=== PATIENT | male | born 1980 | race African-American/Black ===

== ENCOUNTER 2020-10-17 16:39 | Inpatient (IN) ==
--- NOTE | 2020-10-17 16:56 | Emergency Department Note ---
History of Present Illness General Chief complaint: Mental Health Evaluation Stated complaint: MHID Time Seen by Provider: 10/17/20 16:41 Source: patient and EMS Mode of arrival: EMS Limitations: patient cooperation History of Present Illness Provider complaint: Suicidal and homicidal Onset (ago): year(s) Location: head Pain Consistency: + intermittent Quality: + other (Wants to get a gun and shoot people he does not like) Exacerbated By: + other (Stress) Associated symptoms: no chest pain, no cough, no fever/chills, no headaches, no malaise, no nausea/vomiting and no shortness of breath This is a 40-year-old male with a history of bipolar disorder presenting for mental health evaluation. The patient is currently homeless and was living in a longterm. He was referred to crisis from the longterm due to homicidal and suicid al ideation. Crisis then sent him here for further evaluation. Patient admits to homicidal and suicidal ideation. He states that it has been going on most of his life. He has not been taking his bipolar medications. He states that yesterday he overdosed on his trazodone and took 4 pills with alcohol instead of 2. He also feels like getting a gun and shooting people he does not like. He denies any physical complaints. He states he has had no fever, cough or cold symptoms, chest pain, shortness of breath, abdominal pain, vomiting, diarrhea or urinary symptoms. He does request to be tested for STDs because he states he does not trust his . He denies any symptoms or urethral discharge. Past Med/Surg History Medical History (Updated 10/17/20 @ 22:42 by Kevan Romero MD) Bipolar disorder Social History (Updated 10/17/20 @ 16:54 by Kevan Romero MD) Smoking Status: Current every day smoker marital status: Current Living Situation: Homeless Feels Safe at Home: Yes Review of Systems See HPI for pertinent positives & negatives. and A total of 10 systems reviewed and were otherwise negative Physical Exam Vital Signs Vital Signs - 24 hr 10/17/20 16:57 10/17/20 19:41 10/17/20 21:00 Temperature 36.7 C Temperature Source Oral Pulse Rate 100 H Pulse Rate [Right Finger] 89 89 Pulse Rhythm [Right Finger] Regular Regular Pulse Strength [Right Finger] Normal Normal Respiratory Rate 17 16 20 Respiratory Effort / Characteristics Non-Labored Non-Labored Spontaneous Respiratory Depth Normal Normal Blood Pressure 137/83 Blood Pressure [Right Arm] 115/71 120/79 Blood Pressure Mean 101 Blood Pressure Mean [Right Arm] 85 92 Blood Pressure Position [Right Arm] Lying Lying Pulse Oximetry 99 95 95 Oxygen Delivery Method Room Air Room Air Room Air Sepsis Recent Fever Within 48 Hours No Sepsis New/Unexplained Change in Mental Status N/A Sepsis Action Taken by Nursing No Action Required Constitutional: Vital signs reviewed. Eyes: Pupils are equal round reactive to light. Conjunctiva are noninjected. ENT: Pharynx is clear without erythema or exudate. Mucous membranes are moist. Neck supple without meningeal signs. Respiratory: Clear to auscultation bilaterally. Breath sounds are equal bilaterally. Cardiovascular: Regular rate and rhythm. No rubs or gallops. GI: Soft, nondistended and nontender. Bowel sounds are present. : Normal external genitalia. No urethral discharge. Musculoskeletal: No peripheral edema. No lower extremity tenderness. Integumentary: No cyanosis. or jaundice. Neurological: The patient is awake and alert. No focal deficits. Psychiatric: Flat affect. Medical Decision Making Differential Diagnosis Bipolar disorder, homicidal ideation, suicidal ideation, and mood disorder, STI, alcohol abuse Medical Records Attestation: I reviewed the patient's medical records. I did perform a limited focused review of portions of the patient's old chart on the electronic medical record. The patient has had no recent pertinent visits to this hospital. Home Medications Current Medication List: was personally reviewed by me Laboratory Data Attestation: I reviewed the patient's lab results. Result diagrams: 10/17/20 17:09 10/17/20 17:09 Lab Results 10/17/20 10/17/20 10/17/20 Range/Units 16:48 16:48 17:00 WBC (4.8-10.8) K/uL RBC (4.7-6.1) M/uL Hgb (14.0-18.0) g/dL Hct (42-52) % MCV (80-100) fL MCH (25-34) pg MCHC (32-36) g/dL RDW Std Deviation (36.4-46.3) fL RDW Coeff of Sera (11.5-14.5) % Plt Count (130-400) K/uL MPV (7.4-10.4) fL Immature Gran % (Auto) % Neut % (Auto) % Lymph % (Auto) % [place] % (Auto) % Eos % (Auto) % Baso % (Auto) % Neut # (Auto) (1.4-6.5) K/uL Lymph # (Auto) (1.2-3.4) K/uL [place] # (Auto) (0.11-0.59) K/uL Eos # (Auto) (0-0.5) K/uL Baso # (Auto) (0-0.2) K/uL Immature Gran # (Auto) (0.00-0.02) K/uL Sodium (136-145) mmol/L Potassium (3.5-5.1) mmol/L Chloride (98-107) mmol/L Carbon Dioxide (21-32) mmol/L Anion Gap (3-11) BUN (7-18) mg/dl Creatinine (0.6-1.4) mg/dl Est Cr Clr Drug Dosing ml/min Est GFR ( Amer) Est GFR (Non-Af Amer) BUN/Creatinine Ratio (10-20) Glucose (70-99) mg/dl Calcium (8.5-10.1) mg/dl Total Bilirubin (0.2-1) mg/dl AST (15-37) U/L ALT (12-78) U/L Alkaline Phosphatase (45-117) U/L Total Protein (6.4-8.2) gm/dl Albumin (3.4-5.0) gm/dl Globulin (2.5-4.0) gm/dl Albumin/Globulin Ratio (0.9-2) TSH (0.300-4.500) uIu/ml Free T4 (0.8-1.6) ng/dl Urine Color Yellow Urine Appearance Clear (Clear) Urine pH 5.5 (4.5-7.5) Ur Specific [place] 1.012 (1.000-1.030) Urine Protein Negative (Negative) Urine Glucose (UA) Negative (Negative) Urine Ketones Trace H (Negative) Urine Blood Negative (Negative) Urine Nitrite Negative (Negative) Urine Bilirubin Negative (Negative) Urine Urobilinogen Negative (Negative) Ur Leukocyte Esterase Trace H (Negative) Urine WBC (Auto) 1-5 (0-5) /hpf Urine RBC (Auto) 0-4 (0-4) /hpf U Hyaline Cast (Auto) 1-5 (0-5) /lpf U Epithel Cells (Auto) 5-10 H (0-5) /lpf Urine Bacteria (Auto) Negative (Negative) Salicylates (2.8-20) mg/dl Urine Opiates Screen Neg (Neg) Ur Methadone, Qual Neg (Neg) Acetaminophen (10-30) ug/ml Urine Barbiturates Neg (Neg) Ur Phencyclidine (PCP) Neg (Neg) U Amphetamin/Meth Scrn Neg (Neg) MDMA (Ecstasy) Screen Neg (Neg) U Benzodiazepines Scrn Neg (Neg) Ur Cocaine Metabolite Neg (Neg) U Marijuana (THC) Screen Neg (Neg) Ethyl Alcohol mg/dL (0-3) mg/dl COVID-19 Eval Order [facility]Rsv at [facility] SARS-CoV-2 (PCR) (Negative) Influenza Type A (PCR) (Neg) Influenza Type B (PCR) (Neg) RSV (RT-PCR) (Neg) 10/17/20 10/17/20 10/17/20 Range/Units 17:00 17:09 17:09 WBC 9.63 (4.8-10.8) K/uL RBC 5.47 (4.7-6.1) M/uL Hgb 15.7 (14.0-18.0) g/dL Hct 45.3 (42-52) % MCV 82.8 (80-100) fL MCH 28.7 (25-34) pg MCHC 34.7 (32-36) g/dL RDW Std Deviation 43.4 (36.4-46.3) fL RDW Coeff of Sera 14.3 (11.5-14.5) % Plt Count 299 (130-400) K/uL MPV 9.3 (7.4-10.4) fL Immature Gran % (Auto) 0.3 % Neut % (Auto) 49.4 % Lymph % (Auto) 43.4 % [place] % (Auto) 3.9 % Eos % (Auto) 2.8 % Baso % (Auto) 0.2 % Neut # (Auto) 4.75 (1.4-6.5) K/uL Lymph # (Auto) 4.18 H (1.2-3.4) K/uL [place] # (Auto) 0.38 (0.11-0.59) K/uL Eos # (Auto) 0.27 (0-0.5) K/uL Baso # (Auto) 0.02 (0-0.2) K/uL Immature Gran # (Auto) 0.03 H (0.00-0.02) K/uL Sodium 141 (136-145) mmol/L Potassium 3.5 (3.5-5.1) mmol/L Chloride 111 H (98-107) mmol/L Carbon Dioxide 24 (21-32) mmol/L Anion Gap 7.0 (3-11) BUN 8 (7-18) mg/dl Creatinine 1.22 (0.6-1.4) mg/dl Est Cr Clr Drug Dosing 97.2 ml/min Est GFR ( Amer) 86.0 Est GFR (Non-Af Amer) 74.2 BUN/Creatinine Ratio 6.5 L (10-20) Glucose 125 H (70-99) mg/dl Calcium 8.7 (8.5-10.1) mg/dl Total Bilirubin 0.3 (0.2-1) mg/dl AST 26 (15-37) U/L ALT 42 (12-78) U/L Alkaline Phosphatase 78 (45-117) U/L Total Protein 7.6 (6.4-8.2) gm/dl Albumin 3.8 (3.4-5.0) gm/dl Globulin 3.8 (2.5-4.0) gm/dl Albumin/Globulin Ratio 1.0 (0.9-2) TSH 0.238 L (0.300-4.500) uIu/ml Free T4 1.00 (0.8-1.6) ng/dl Urine Color Urine Appearance (Clear) Urine pH (4.5-7.5) Ur Specific [place] (1.000-1.030) Urine Protein (Negative) Urine Glucose (UA) (Negative) Urine Ketones (Negative) Urine Blood (Negative) Urine Nitrite (Negative) Urine Bilirubin (Negative) Urine Urobilinogen (Negative) Ur Leukocyte Esterase (Negative) Urine WBC (Auto) (0-5) /hpf Urine RBC (Auto) (0-4) /hpf U Hyaline Cast (Auto) (0-5) /lpf U Epithel Cells (Auto) (0-5) /lpf Urine Bacteria (Auto) (Negative) Salicylates (2.8-20) mg/dl Urine Opiates Screen (Neg) Ur Methadone, Qual (Neg) Acetaminophen (10-30) ug/ml Urine Barbiturates (Neg) Ur Phencyclidine (PCP) (Neg) U Amphetamin/Meth Scrn (Neg) MDMA (Ecstasy) Screen (Neg) U Benzodiazepines Scrn (Neg) Ur Cocaine Metabolite (Neg) U Marijuana (THC) Screen (Neg) Ethyl Alcohol mg/dL (0-3) mg/dl COVID-19 Eval Order SARS-CoV-2 (PCR) NEGATIVE (Negative) Influenza Type A (PCR) Negative (Neg) Influenza Type B (PCR) Negative (Neg) RSV (RT-PCR) Negative (Neg) 10/17/20 10/17/20 Range/Units 17:09 17:09 WBC (4.8-10.8) K/uL RBC (4.7-6.1) M/uL Hgb (14.0-18.0) g/dL Hct (42-52) % MCV (80-100) fL MCH (25-34) pg MCHC (32-36) g/dL RDW Std Deviation (36.4-46.3) fL RDW Coeff of Sera (11.5-14.5) % Plt Count (130-400) K/uL MPV (7.4-10.4) fL Immature Gran % (Auto) % Neut % (Auto) % Lymph % (Auto) % [place] % (Auto) % Eos % (Auto) % Baso % (Auto) % Neut # (Auto) (1.4-6.5) K/uL Lymph # (Auto) (1.2-3.4) K/uL [place] # (Auto) (0.11-0.59) K/uL Eos # (Auto) (0-0.5) K/uL Baso # (Auto) (0-0.2) K/uL Immature Gran # (Auto) (0.00-0.02) K/uL Sodium (136-145) mmol/L Potassium (3.5-5.1) mmol/L Chloride (98-107) mmol/L Carbon Dioxide (21-32) mmol/L Anion Gap (3-11) BUN (7-18) mg/dl Creatinine (0.6-1.4) mg/dl Est Cr Clr Drug Dosing ml/min Est GFR ( Amer) Est GFR (Non-Af Amer) BUN/Creatinine Ratio (10-20) Glucose (70-99) mg/dl Calcium (8.5-10.1) mg/dl Total Bilirubin (0.2-1) mg/dl AST (15-37) U/L ALT (12-78) U/L Alkaline Phosphatase (45-117) U/L Total Protein (6.4-8.2) gm/dl Albumin (3.4-5.0) gm/dl Globulin (2.5-4.0) gm/dl Albumin/Globulin Ratio (0.9-2) TSH (0.300-4.500) uIu/ml Free T4 (0.8-1.6) ng/dl Urine Color Urine Appearance (Clear) Urine pH (4.5-7.5) Ur Specific [place] (1.000-1.030) Urine Protein (Negative) Urine Glucose (UA) (Negative) Urine Ketones (Negative) Urine Blood (Negative) Urine Nitrite (Negative) Urine Bilirubin (Negative) Urine Urobilinogen (Negative) Ur Leukocyte Esterase (Negative) Urine WBC (Auto) (0-5) /hpf Urine RBC (Auto) (0-4) /hpf U Hyaline Cast (Auto) (0-5) /lpf U Epithel Cells (Auto) (0-5) /lpf Urine Bacteria (Auto) (Negative) Salicylates 3.1 (2.8-20) mg/dl Urine Opiates Screen (Neg) Ur Methadone, Qual (Neg) Acetaminophen < 2 L (10-30) ug/ml Urine Barbiturates (Neg) Ur Phencyclidine (PCP) (Neg) U Amphetamin/Meth Scrn (Neg) MDMA (Ecstasy) Screen (Neg) U Benzodiazepines Scrn (Neg) Ur Cocaine Metabolite (Neg) U Marijuana (THC) Screen (Neg) Ethyl Alcohol mg/dL 256.9 H (0-3) mg/dl COVID-19 Eval Order SARS-CoV-2 (PCR) (Negative) Influenza Type A (PCR) (Neg) Influenza Type B (PCR) (Neg) RSV (RT-PCR) (Neg) Imaging Data Radiologist's Impression: MDM Narrative I did evaluate the patient as noted above. The patient presents with homicidal and suicidal ideation. He states that he overdosed on trazodone yesterday with alcohol but only took 4 pills. He has no physical complaints at this time. He also states that he wants to get a gun and shoot people he does not like. He did request STI testing. I did explain to him that we only test for GC and chlamydia and that should he be concerned for other STIs such as HIV or syphilis he would need to be tested at the proper facility. I did order a urine analysis. He does not have a UTI. I did order and review the patient's blood w ork as noted in the electronic medical record. CBC is unremarkable without leukocytosis or anemia or thrombocytopenia. Electrolytes are unremarkable other than a chloride of 111. Serum alcohol is 256.9. He will be medically cleared at about midnight. The mental health employment case manager did speak to them and he admitted to previous history of violence. He stated that he went to jail for manslaughter when he was 20 years old. He was verbally aggressive with somebody yesterday and he told crisis that he wanted to be admitted then should he try to leave they should commit him. Once he is medically cleared after midnight he will be fully assessed. The patient was signed out to Dr. Bautista pending placement in an inpatient mental health facility. Impression & Plan Bipolar disorder, Homicidal ideation, Drug overdose Discharge Plan Visit Data Chief Complaint: Mental Health Evaluation Stated Complaint: MHID ED Provider: Kevan Romero Discharge Problem: Bipolar disorder, Homicidal ideation, Drug overdose Patient Disposition: Still a Patient Forms Stand Alone Forms: My [facility], Suicide Prevention Resources Referrals Referrals: PCP,NO [Primary Care Provider] -
[2020-10-17 17:12] LABS: Appearance Urine Clear (Clear); Bacteria Urine Automated Negative (Negative); Bilirubin Urine Negative (Negative); Blood Urine Negative (Negative); Color Urine Yellow; Glucose Urine UA Negative (Negative); Ketones Urine Trace (Negative); Leukocyte Esterase Urine Trace (Negative); Nitrite Urine Negative (Negative); Protein Urine Negative (Negative); RBC Urine Automated 0-4 /hpf (0-4); Specific Gravity Urine 1.012 (1.000-1.030); Urobilinogen Urine Negative (Negative); pH Urine 5.5 (4.5-7.5)
[2020-10-17 17:36] LABS: Amphetamines+Metham, Urine Neg (Neg); Barbiturates, Urine Neg (Neg); Benzodiazepine, Urine Neg (Neg); Cocaine, Urine Neg (Neg); MDMA (Ecstacy), Urine Neg (Neg); Methadone, Urine Neg (Neg); Opiate, Urine Neg (Neg); Phencyclidine, Urine Neg (Neg)
[2020-10-17 17:40] LABS: Basophils # (auto) 0.02 K/uL (0-0.2); Basophils % (auto) 0.2 %; Eosinophils # (auto) 0.27 K/uL (0-0.5); Eosinophils % (auto) 2.8 %; Hematocrit (blood only) 45.3 % (42-52); Hemoglobin 15.7 g/dL (14.0-18.0); Immature Granulocytes # (auto) 0.03 K/uL (0.00-0.02); Immature Granulocytes % (auto) 0.3 %; Lymphocytes # (auto) 4.18 K/uL (1.2-3.4); Lymphocytes % (auto) 43.4 %; Mean Corpuscular Hemoglobin 28.7 pg (25-34); Mean Corpuscular Hgb Conc 34.7 g/dL (32-36); Mean Corpuscular Volume 82.8 fL (80-100); Mean Platelet Volume 9.3 fL (7.4-10.4); Monocytes # (auto) 0.38 K/uL (0.11-0.59); Monocytes % (auto) 3.9 %; Neutrophils # (auto) 4.75 K/uL (1.4-6.5); Neutrophils % (auto) 49.4 %; Platelet Count 299 K/uL (130-400); RDW Coefficient of Variation 14.3 % (11.5-14.5); RDW Standard Deviation 43.4 fL (36.4-46.3); Red Blood Count 5.47 M/uL (4.7-6.1); White Blood Count 9.63 K/uL (4.8-10.8)
[2020-10-17 17:48] LABS: Albumin Level 3.8 gm/dl (3.4-5.0); BUN Creatinine Ratio 6.5 (10-20); Calcium 8.7 mg/dl (8.5-10.1); Creatinine Clr Calc Pharmacy 97.2 ml/min; Est GFR (Non-African American) 74.2; Potassium 3.5 mmol/L (3.5-5.1)
[2020-10-17 17:53] LABS: Acetaminophen < 2 ug/ml (10-30); Salicylate 3.1 mg/dl (2.8-20)
[2020-10-17 17:57] LABS: Influenza A virus by PCR Negative (Neg); Influenza B virus by PCR Negative (Neg); RSV by PCR Negative (Neg); SARS CoV2 RNA(COVID-19) InHosp NEGATIVE (Negative)
[2020-10-17 17:58] LABS: Bilirubin,Total 0.3 mg/dl (0.2-1); Globulin 3.8 gm/dl (2.5-4.0); Thyroid Stimulating Hormone 0.238 uIu/ml (0.300-4.500); Total Protein 7.6 gm/dl (6.4-8.2)
--- NOTE | 2020-10-17 23:26 | Emergency Department Note ---
ED Visit Note Received patient in signout. History and physical verified by me. Patient is awaiting sobering up. Patient signed out to Dr. Roy at change of shift . : Bipolar disorder Qualifiers: Active/Remission status: currently active Current bipolar episode type: mixed Current episode severity: unspecified Qualified Code(s): F31.60 - Bipolar disorder, current episode mixed, unspecified Drug overdose Qualifiers: Encounter type: initial encounter Injury intent: intentional self-harm Qualified Code(s): T50.902A - Poisoning by unspecified drugs, medicaments and biological substances, intentional self-harm, initial encounter
[2020-10-18] MEDS ORDERED: haloperidoL 5 MG TAB PO STA (08:15)
[2020-10-18] MEDS ORDERED: LORazepam 1 MG TAB SL STA (08:15)
--- NOTE | 2020-10-18 08:46 | Emergency Department Note ---
ED Visit Note This patient was signed out to me at shift change by Dr. Bautista. At that point the patient been medically cleared and was awaiting placement which was proven to be difficult. It was noted that there is a petition or statement for the 302 but has not been signed off by the delegate yet as up to this point the patient is voluntary. Should he refuse to stay and change his mind the plan would be to fill out the 302 petition based on his presentation. Dr. Bautista has also ordered some medication for sedation/agitation for the patient to have. I have evaluated the patient and seen him several times he has remained calm. He has been given food and nicotine patch and gum. He will be signed out at shift change to Dr. Romero. . : Bipolar disorder Qualifiers: Active/Remission status: currently active Current bipolar episode type: mixed Current episode severity: unspecified Qualified Code(s): F31.60 - Bipolar disorder, current episode mixed, unspecified Drug overdose Qualifiers: Encounter type: initial encounter Injury intent: intentional self-harm Qualified Code(s): T50.902A - Poisoning by unspecified drugs, medicaments and biological substances, intentional self-harm, initial encounter
[2020-10-18] MEDS ORDERED: NICOTINE 14 MG/24 HR PATCH TD STA (11:38)
[2020-10-18] MEDS ORDERED: NICOTINE POLACRILEX 2 MG GUM MT PRN ×2 (14:17→16:02)
[2020-10-18] MEDS ORDERED: ACETAMINOPHEN 325 MG TAB PO PRN (16:00)
[2020-10-18] MEDS ORDERED: BISMUTH SUBSALICYLATE LIQD 236 ML PO PRN (16:00)
[2020-10-18] MEDS ORDERED: SODIUM CHLORIDE 0.65% NA SOLN 45 ML (OCEAN) PRN (16:00)
[2020-10-18] MEDS ORDERED: MAGNESIUM HYDROXIDE SUSP 30 ML UDC PO PRN (16:00)
[2020-10-18] MEDS ORDERED: hydrOXYzine HCl 25 MG TAB PO PRN ×2 (16:00)
[2020-10-18] MEDS ORDERED: ALUMINUM/MAGNESIUM SUSP 30 ML UDC PO PRN (16:00)
[2020-10-18] MEDS ORDERED: haloperidoL 5 MG TAB PO PRN (16:02)
[2020-10-18] MEDS ORDERED: LORazepam 1 MG TAB PO PRN (16:03)
[2020-10-18] MEDS ORDERED: HALOPERIDOL LACTATE 5 MG/ML 1 ML VIAL IM PRN (16:03)
[2020-10-18] MEDS ORDERED: LORazepam 2 MG/ML VIAL (IM USE) IM PRN (16:04)
[2020-10-18] MEDS ORDERED: BENZTROPINE MESYLATE 1 MG TAB PO PRN (16:10)
[2020-10-18] MEDS ORDERED: diphenhydrAMINE 50 MG/ML VIAL IM PRN (16:10)
--- NOTE | 2020-10-18 16:19 | Emergency Department Note ---
ED Visit Note This patient was signed out to me by Dr. Roy at 4 PM pending psychiatric placement. The senior case manager almost immediately told me that [facility] has accepted him and he will be admitted upstairs in the behavioral unit. The patient unfortunately decided that he wanted to go home. Given his recent overdose with suicidal ideation and homicidal ideation I did not feel this was a safe option for him. I therefore signed the 302. . : Bipolar disorder Qualifiers: Active/Remission status: currently active Current bipolar episode type: mixed Current episode severity: unspecified Qualified Code(s): F31.60 - Bipolar disorder, current episode mixed, unspecified Drug overdose Qualifiers: Encounter type: initial encounter Injury intent: intentional self-harm Qualified Code(s): T50.902A - Poisoning by unspecified drugs, medicaments and biological substances, intentional self-harm, initial encounter
[2020-10-18] MEDS ORDERED: ARIPiprazole 10 MG TAB PO ONE (16:30)
[2020-10-18] MEDS ORDERED: LORazepam 2 MG/4 ML VIAL ONE (17:34)
[2020-10-19] MEDS ORDERED: NICOTINE 14 MG/24 HR PATCH TD SCH (09:00)
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
[2020-10-19] MEDS ORDERED: BENZTROPINE MESYLATE 1 MG/ML 2 ML AMP IM PRN (10:35)
[2020-10-19] MEDS: NICOTINE 21 MG/24 HR TDSY TD SCH (10:37)
[2020-10-19] MEDS: ARIPiprazole 10 MG TAB PO SCH (10:38)
[2020-10-19] MEDS ORDERED: HALOPERIDOL LACTATE 5 MG/ML 1 ML VIAL IM PRN (10:39)
[2020-10-19] MEDS ORDERED: traZODone HCL 100 MG TAB PO PRN (10:45)
[2020-10-19] MEDS: CHLORTHALIDONE 25 MG TAB PO SCH (13:05)
[2020-10-19] MEDS: traZODone HCL 100 MG TAB PO SCH (20:50)
[2020-10-20 08:10] LABS: Glucose Fasting 106 mg/dl (70-99)
[2020-10-20 08:17] LABS: Chol HDL Ratio 6; Cholesterol 184 mg/dl (0-200); HDL Cholesterol 31 mg/dl; LDL Cholesterol Calculated 125 mg/dl; Triglycerides 141 mg/dl (0-150); VLDL Cholesterol 28 mg/dl
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
[2020-10-20] MEDS: ARIPiprazole 10 MG TAB PO SCH (09:12)
[2020-10-20] MEDS: NICOTINE 21 MG/24 HR TDSY TD SCH (09:13)
[2020-10-20] MEDS: CHLORTHALIDONE 25 MG TAB PO SCH (09:13)
[2020-10-20 12:07] LABS: Chlamydia Trach RNA NOT DETECTED (NOT DETECTED); GC (Neis gonorrhoeae) RNA NOT DETECTED (NOT DETECTED)
[2020-10-20] MEDS: traZODone HCL 100 MG TAB PO SCH (21:01)
[2020-10-21] MEDS: CHLORTHALIDONE 25 MG TAB PO SCH (08:46)
[2020-10-21] MEDS: ARIPiprazole 10 MG TAB PO SCH (08:46)
[2020-10-21] MEDS: NICOTINE 21 MG/24 HR TDSY TD SCH (08:48)
--- NOTE | 2020-10-21 09:00 | Discharge Summary ---
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 Appointment Comment: Telehealth Veterinary Anatomist Name of Veterinary Anatomist: [facility] Phone Number for Veterinary Anatomist: [phone] Case Management Appointment Comment: Please keep her updated on your plans Post Discharge Appointments Primary Care Physician Name Of Family Doctor: [facility] - no other information provided as pt has not been seen Smoking Cessation Counseling Tobacco Cessation Medication Prescribed at Discharge: Offered & Prescribed Contact Information Discharge Discharge Plan Discharge Items Patient Disposition: Home - Self-Care Reason For Visit: HI/SI, BIPOLAR DISORDER Discharge Diagnosis: Bipolar disorder Activity: Per Instructions section Non-emergency contact: Psychiatrist, Therapist and Christian Education Director Call non-emergency contact if: you have any medication questions and your symptoms worsen Follow-up/Referrals: PCP,NO [Primary Care Provider] - Diet: Regular Addtl Attending Provider Instructions: SPECIAL CARE INSTRUCTIONS: 1. Follow through with your scheduled aftercare appointments. If unable to keep an appointment, please call to reschedule. 2. Take your medication only as prescribed. Medication should not be changed or stopped without the approval of your doctor. In the event of worsening symptoms or concerns about side effects, contact your doctor immediately. 3. Utilize new healthy coping skills, anger management skills, and stress management skills learned during your hospitalization. Journal feelings and process them with a support person. Identify stressors or situations that may result in relapse, deterioration or inappropriate behaviors and develop a plan to deal with those issues. 4. If your coping skills are ineffective and you are in crisis, contact your outpatient providers for direction. If unable to reach your providers, please call the [facility] CRISIS LINE AT , go to the [facility] walk-in center at [address], [address], [place], or go to the closest Emergency Room. 5. Avoid alcohol and un-prescribed drugs. 6. You have been provided with the Mental Health Advance Directives Pamphlet for your review. AFTERCARE APPOINTMENTS: * Please call your insurance company prior to your scheduled appointment to confirm your aftercare providers are covered. Take your insurance information to your appointments. WHO TO CALL AND WHEN: Medical Emergencies: For questions or emergencies related to your hospital stay, please contact the Inpatient Behavioral Health Unit at [phone]. A communications advisor is on-call 31/01 for the Behavioral Health Unit for emergencies At any time you feel your situation is an emergency, you may also call 911 immediately. Pending Studies at Discharge: No Stand-Alone Forms: [employer], Smoking Cessation Medications and DC Order Prescriptions: New nicotine [Nicoderm CQ] 21 mg/24 hr Patch 24 Hour 21 mg transdermal QAM Qty: 7 RF: 0 aripiprazole [Abilify] 10 mg Tablet 10 mg PO QAM Qty: 14 RF: 0 trazodone 100 mg Tablet 100 mg PO HS Qty: 14 RF: 0 Abilify Maintena 400 mg suspension,extended rel recon 400 mg IM Q4WK Qty: 1 RF: 0 Discharge Orders: Discharge Order (Routine); Ordered 10/21/20 Ordered By: Margret Lopez Admission Data Admit Date/Time: 10/18/20 16:00 Attending Provider: Makayla Joya Admit Provider: Makayla Joya Primary Care Provider: PCP,NO Other Interventions: Discharge Summary Assessment (RN) Last Done: 10/21/20 10:24 PSY Interdisciplinary Discharge Planning Last Done: 10/21/20 10:24 Coding Level of Care Code 74232 D/C day mgmt > 30 min Diagnoses Bipolar disorder F31.60 Active/Remission status: currently active Current bipolar episode type: mixed Current episode severity: unspecified PTSD (post-traumatic stress disorder) F43.10 HTN (hypertension) I10 Nicotine dependence F17.200 Alcohol use disorder, severe, in early remission, dependence F10.21
[2020-10-21] MEDS ORDERED: DESTROY THIS MEDICATION ONE (11:30)
== END 2020-10-21 11:36 | disposition home or self-care (01) | DRG 885 ==
LOC: ED 16:39 → 3S 10-18 16:00